=== PATIENT | female | born 1985 | race Caucasian/White ===

== ENCOUNTER 2016-09-14 17:42 | Emergency (ER) | payer MEDICAID, OTHER ==
[~2016-09-14] VITALS: Ht 160 cm; Wt 75.4 kg
[~2016-09-14 17:42] MED LIST: ACET325T14 PO; ESCI5TAB7 PO; IBUP200T48 PO; LEVO750T26 PO; OXYC-302 PO; OXYC5TAB3 PO; PANT40TA5 PO; POLY17PO5 PO; PREN1TAB60 PO; SUVO10TA PO; VENL37.52 PO
[2016-09-14 17:45] VITALS: BP 114/78
[2016-09-14] MEDS ORDERED: HYDROcodone/APAP 5/325 TABLET PO ONE (18:30)
[2016-09-14] MEDS ORDERED: KETOROLAC 30 MG/1 ML IM ONE (18:30)
[2016-09-14] MEDS ORDERED: METHOCARBAMOL 750 MG TABLET PO ONE (18:30)
[2016-09-14] MEDS ORDERED: HYDROcodone/APAP 5/325 TABLET ONE (18:58)
[2016-09-14] MEDS ORDERED: KETOROLAC 30 MG/1 ML ONE (18:58)
[2016-09-14] MEDS ORDERED: METHOCARBAMOL 750 MG TABLET ONE (18:58)
== END 2016-09-14 19:48 | disposition home or self-care (01) ==
LOC: ED 18:53
DX: M51.26 Other intervertebral disc displacement, lumbar region (principal); M53.3 Sacrococcygeal disorders, not elsewhere classified; M46.1 Sacroiliitis, not elsewhere classified
CPT/HCPCS: 72110; 96372; 99284; J1885

== ENCOUNTER 2016-11-23 17:10 | Emergency (ER) | payer SELFPAY ==
[~2016-11-23] VITALS: Ht 160 cm; Wt 74.5 kg
[2016-11-23 17:17] VITALS: BP 121/77
[2016-11-23] MEDS ORDERED: KETOROLAC 30 MG/1 ML IM ONE (18:00)
[2016-11-23] MEDS ORDERED: KETOROLAC 30 MG/1 ML ONE (18:15)
== END 2016-11-23 18:35 | disposition home or self-care (01) ==
LOC: ED 18:00
DX: M77.52 Other enthesopathy of left foot and ankle (principal)
CPT/HCPCS: 73650; 96372; 99284; J1885

== ENCOUNTER 2017-01-17 17:31 | Emergency (ER) | payer BC ==
[~2017-01-17] VITALS: Ht 160 cm; Wt 72.3 kg
[2017-01-17 17:42] VITALS: BP 112/80
[2017-01-17] MEDS ORDERED: HYDROcodone/APAP 7.5-325MG/15ML UDC PO ONE (18:30)
[2017-01-17] MEDS ORDERED: DEXAMETHASONE 4 MG TABLET PO ONE (18:30)
[2017-01-17] MEDS ORDERED: HYDROcodone/APAP 7.5-325MG/15ML UDC ONE (18:42)
[2017-01-17] MEDS ORDERED: DEXAMETHASONE 4 MG TABLET ONE (18:42)
== END 2017-01-17 19:25 | disposition home or self-care (01) ==
LOC: ED 19:00
DX: B34.9 Viral infection, unspecified (principal); J02.8 Acute pharyngitis due to other specified organisms; F41.9 Anxiety disorder, unspecified
CPT/HCPCS: 71020; 99284